=== PATIENT | male | born 1940 | race Caucasian/White ===

== ENCOUNTER 2017-05-11 17:01 | Inpatient (IN) | payer MEDICARE ==
[~2017-05-11] VITALS: Ht 177.8 cm; Wt 53.1 kg
[2017-05-11] MEDS ORDERED: traMADol 50 MG TABLET PO PRN (18:30)
[2017-05-11] MEDS ORDERED: ONDANSETRON ODT 4 MG TAB.RAPDIS. PO PRN (18:30)
[2017-05-11] MEDS ORDERED: MAGNESIUM HYDROXIDE 2,400 MG/30 ML ORAL.SUSP. PO PRN (18:30)
[2017-05-11] MEDS ORDERED: MAGNESIUM CITRATE 296 ML SOLUTION. PO PRN (18:30)
[2017-05-11] MEDS ORDERED: IPRATRPIUM/ALBUTEROL 0.5/2.5MG 3 ML NEBU. NEB PRN (18:30)
[2017-05-11 18:45] VITALS: BP 128/61
[2017-05-11 19:00] VITALS: BP 167/55
[2017-05-11] MEDS ORDERED: ENOX40DI SQ (19:08)
[2017-05-11] MEDS ORDERED: TAMS0.4C97 PO (19:08)
[2017-05-11] MEDS ORDERED: FLUT9.9S NS (19:08)
[2017-05-11] MEDS ORDERED: GLIM2TAB2 PO (19:08)
[2017-05-11] MEDS ORDERED: ASPI-630 PO (19:08)
[2017-05-11] MEDS ORDERED: NIAC500T PO (19:08)
[2017-05-11] MEDS ORDERED: WHEA1POW8 PO (19:08)
[2017-05-11] MEDS ORDERED: MAGN296S9 PO (19:08)
[2017-05-11] MEDS ORDERED: FERR-26 PO (19:08)
[2017-05-11] MEDS ORDERED: ONDA4TAB10 SL (19:08)
[2017-05-11] MEDS ORDERED: IPRA3AMP NEB (19:08)
[2017-05-11] MEDS ORDERED: FEXO180T16 PO (19:08)
[2017-05-11] MEDS ORDERED: CYAN100031 PO (19:08)
[2017-05-11] MEDS ORDERED: CHOL10003 PO (19:08)
[2017-05-11] MEDS ORDERED: PANT40TA5 PO (19:08)
[2017-05-11] MEDS ORDERED: TRAM50TA PO (19:08)
[2017-05-11] MEDS ORDERED: CLOP75TA PO (19:08)
[2017-05-11] MEDS ORDERED: MAGN400O7 PO (19:08)
[2017-05-11] MEDS ORDERED: LIRA0.6P2 SQ (19:08)
[2017-05-11] MEDS ORDERED: METF-620 PO (19:08)
[2017-05-11] MEDS ORDERED: DEXTROSE 50% 25 GM / 50ML DISP.SYRIN. IV PRN (19:30)
[2017-05-11] MEDS ORDERED: ACETAMINOPHEN 325 MG TABLET. PO PRN (19:30)
[2017-05-11 19:48] LABS: BASO # 0.1 x10^3/uL (0.0-0.2); BASO % 1 % (0-3); EOS % 10 % (0-3); HEMATOCRIT 29.4 % (39.0-53.0); LYMPH # 0.6 x10^3/uL (1.0-4.8); LYMPH % 10 % (24-48); MEAN CORPUSCULAR HEMOGLOBIN 32 pg (25-35); MEAN CORPUSCULAR HGB CONC 34 g/dL (31-37); MEAN CORPUSCULAR VOLUME 94 fL (79-100); MONO % 6 % (0-9); NEUT % 73 % (31-73); PLATELET COUNT 241 x10^3/uL (140-400); RED BLOOD COUNT 3.11 x10^6/uL (4.30-5.70); RED CELL DISTRIBUTION WIDTH 13.5 % (11.5-14.5); WHITE BLOOD COUNT 5.7 x10^3/uL (4.0-11.0)
[2017-05-11] MEDS ORDERED: IOHEXOL 350 MG/ML 100 ML VIAL. IV ONE (20:00)
[2017-05-11] MEDS ORDERED: CONTRAST GIVEN MC PRN (20:00)
[2017-05-11 20:01] LABS: CALCIUM 9.1 mg/dL (8.5-10.1); CREATININE 1.1 mg/dL (0.7-1.3); GFR 65.1
[2017-05-11 20:07] LABS: ALBUMIN 3.2 g/dL (3.4-5.0); TOTAL BILIRUBIN 0.3 mg/dL (0.2-1.0); TOTAL PROTEIN 6.3 g/dL (6.4-8.2)
[2017-05-11 20:08] LABS: INR 1.1 (0.8-1.1); PROTHROMBIN TIME PATIENT 13.7 SEC (11.7-14.0)
[2017-05-11] MEDS: fentaNYL PF VIAL 100 MCG/2 ML VIAL IV PRN (21:23)
[2017-05-11] MEDS: ONDANSETRON PF 4 MG/2 ML VIAL. IV PRN (21:24)
[2017-05-11] MEDS: IV NORMAL SALINE 1000ML BAG 1,000 ML IV SCH (21:26)
--- NOTE | 2017-05-11 21:32 | RAD ---
CTA of the abdomen and pelvis with contrast 05/11/2017 CLINICAL HISTORY: Nausea and vomiting for 4 days. History of recent femoral bypass. TECHNIQUE: After the intravenous administration of 90 cc of Omnipaque 350, contiguous, 0.625 mm axial sections were obtained through the abdomen and pelvis. Multiplanar 3-D MIP and volume rendered 3-D reconstructed images were obtained. One or more of the following individualized dose reduction techniques were utilized for this study: 1. Automated exposure control. 2. Adjustment of the mA and/or kV according to patient size. 3. Use of iterative reconstruction technique. FINDINGS: Images through the lung bases demonstrate mild emphysematous changes bilaterally. The spleen, adrenal glands and right are within normal limits. A 1.2 cm rounded low-attenuation lesion is seen involving the inferior aspect of the right lobe of the liver. This likely represents a hepatic cyst. A nonenhancing low-attenuation area is seen involving the inferior aspect of the left kidney which likely represents an area of infarction. This measures 4.1 cm in size. The gallbladder is well-distended. No free fluid or free air is seen within the abdomen. There is no evidence of bowel obstruction. Images through the pelvis demonstrate the urinary bladder distended with urine. Fiducial markers are seen within the prostate gland. No free fluid is seen. Minimal S-shaped curvature of the thoracolumbar spine is noted. Degenerative changes are seen involving lower thoracic and throughout the lumbar spine and both hips. CTA images demonstrate moderate to severe atheromatous/atherosclerotic plaque formation involving the abdominal aorta and its branches. The abdominal aorta tapers normally. The origins of the celiac trunk and superior mesenteric arteries are patent. Solitary renal arteries are seen supplying both kidneys. Their origins are patent. The origin of the inferior mesenteric artery is not visualized. The patient is post aortobifemoral bypass graft placement. The graft is patent. The distal abdominal aorta is occluded. Reconstitution of arterial flow is seen via collaterals involving the distal common iliac arteries. The external iliac arteries are very small bilaterally. IMPRESSION: Post aortobifemoral bypass graft placement. The graft is patent as outlined above. No hemodynamically significant stenosis is seen involving the celiac trunk or superior mesenteric artery. An area of infarction is seen involving the inferior aspect of the left kidney as outlined above. Electronically signed by: Yonny Miller MD (05/11/2017 9:29 PM) [facility]
[2017-05-11 23:00] VITALS: BP 161/57
[2017-05-12] MEDS: IV NORMAL SALINE 1000ML BAG 1,000 ML IV SCH ×4 (02:30→23:26)
[2017-05-12 03:00] VITALS: BP 165/68
[2017-05-12] MEDS: fentaNYL PF VIAL 100 MCG/2 ML VIAL IV PRN ×4 (04:13→22:29)
[2017-05-12] MEDS: ONDANSETRON PF 4 MG/2 ML VIAL. IV PRN ×4 (04:13→22:28)
[2017-05-12 07:00] VITALS: BP 162/64
--- NOTE | 2017-05-12 07:48 | PDOC ---
Provider Note Provider Note Vascular Surgery Consultation Dictated 77 year old male with a recent aortobifemoral bypass, SMA and renal endarterectomies, right fem-pop bypass admitted with nausea and vomiting. 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 His labs are normal, no pain in abdomen on exam and no bowel abnormalities on CTA. May resume diet when ok with medicine/GI. IV fluids for hypovolemia with nausea/vomiting. Restart aspirin/plavix. Physical therapy consult. No vascular surgical intervention needed at this time. KELY CARL MD May 12, 2017 07:48
[2017-05-12] MEDS: CLOPIDOGREL BISULFATE 75 MG TABLET PO SCH (08:00)
[2017-05-12] MEDS: INSULIN ASPART 300 UNITS/3 ML INSULN.PEN SQ SCH ×3 (08:00→16:47)
[2017-05-12] MEDS ORDERED: ASPIRIN ENTERIC COATED 81 MG TABLET.DR. PO SCH (08:00)
--- NOTE | 2017-05-12 08:16 | CONS ---
DATE OF CONSULTATION: 05/12/2017 CHIEF COMPLAINT: Nausea and vomiting. HISTORY OF PRESENT ILLNESS: The patient is a 77-year-old male who a few weeks ago underwent surgery with Dr. Garibay at [facility] with an aortobifemoral artery bypass graft, bilateral renal artery and superior mesenteric artery endarterectomy with reimplantation of the inferior mesenteric artery and a right femoral to popliteal artery bypass graft in his leg. He was recently seen by Dr. Garibay approximately 1-1/2 weeks ago and the family reports being started on antibiotics for right leg incisional cellulitis. He reports 3-4 days of nausea and vomiting with abdominal fullness. He states he has had no abdominal pain. He did have a regular bowel movement yesterday and no diarrhea. He reports no fevers or chills. He has been at the [facility] and was sent to the hospital from there for evaluation of these symptoms. On admission yesterday evening, I had him get a CT angiogram of the abdomen and pelvis which shows the bypass graft is patent along with a patent celiac, superior mesenteric artery and bilateral renal arteries without significant stenosis. There are no signs of bowel ischemia. There is a small left inferior pole infarct in his kidney and this is likely secondary to an accessory artery ligation during the operation. He does not have any pain in this area from the infarct and his creatinine has been normal. The bowel was normal on the CAT scan, there were no signs of acute abnormalities. He has been receiving IV fluid hydration overnight and his laboratory studies on admission had a normal white blood cell count of 5.7, hemoglobin of 10. His lactate was slightly elevated at 2.2, but repeat was normal at 1.9 and his creatinine was normal at 1.1. ALLERGIES: INCLUDE PENICILLIN AND ATORVASTATIN. MEDICATIONS: Please see his full MAR. PHYSICAL EXAMINATION: VITAL SIGNS: The patient is afebrile at 98.8, his blood pressure is 161/57, pulse of 68, he is 96% on room air. ABDOMEN: Soft, nondistended and nontender. His midline incision has healed well. EXTREMITIES: His right groin and leg incisions are healed well with no erythema. He has a palpable graft pulse and his right foot is warm. There is very mild swelling in his right leg. His left leg groin incision is slightly swollen with a seroma seen on CT scan. There is no overlying erythema or drainage and his left foot is warm with no skin breakdown. IMPRESSION: 1. Recent aortobifemoral artery bypass graft with superior mesenteric artery and bilateral renal artery endarterectomies along with a right femoral to popliteal artery bypass. 2. Nausea and vomiting. PLAN: The patient underwent a CT angiogram of the abdomen and pelvis which shows that the bypass is patent along with patent mesenteric vessels with no stenosis in the superior mesenteric artery or celiac artery. There are no signs of bowel ischemia or bowel changes on the CAT scan. He does have a small left inferior pole renal infarct, likely due to accessory artery ligation, but he is asymptomatic with no pain and a normal creatinine. There is no acute abnormality seen on the CAT scan. The patient has nausea and vomiting with regular bowel movements. He has no abdominal pain on examination. He is receiving IV fluid hydration. Gastroenterology has been consulted. From vascular standpoint, he can resume his diet and be monitored. There is no need for acute surgical intervention. I will reorder his aspirin and Plavix, which is important for his bypass, which is patent in his right leg. Physical therapy will also be ordered since he has been at rehabilitation center. KELY CARL MD DR: ALEX/yrn JOB#: [id number] / [id number]
[2017-05-12] MEDS: FLUTICASONE 50MCG/NASAL SPRAY 16GM BOTTLE. NS SCH (09:00)
[2017-05-12] MEDS: PANTOPRAZOLE 40 MG TABLET.DR. PO SCH (09:00)
[2017-05-12] MEDS: PSYLLIUM HUSK (SUGAR FREE) 1 PKT PACKET PO SCH (09:00)
[2017-05-12] MEDS: CETIRIZINE HCL 10 MG TABLET. PO SCH (09:00)
[2017-05-12] MEDS: CHOLECALCIFEROL (VITAMIN D3) 1,000 UNIT TABLET PO SCH (09:00)
[2017-05-12] MEDS: ASPIRIN CHEWABLE 81 MG TABLET. PO SCH (09:00)
[2017-05-12] MEDS: CYANOCOBALAMIN (VITAMIN B-12) 1,000 MCG TABLET. PO SCH (09:00)
[2017-05-12] MEDS: TAMSULOSIN 0.4 MG CAP.ER.24H. PO SCH (09:00)
[2017-05-12] MEDS: FERROUS SULFATE 325 MG TABLET. PO SCH (09:00)
--- NOTE | 2017-05-12 09:03 | RAD ---
Exam performed: Lower extremity venous Doppler. History: Right lower extremity swelling. Date of service: 05/11/17. Comparison: None available Technique: Real-time grayscale, color-flow, duplex Doppler and spectral as of the right lower extremity deep venous system is performed and images are obtained. Findings: The study somewhat limited due to Steri-Strips in the groin region. The right lower extremity deep venous system is patent and compressible. No intraluminal clot is seen. Normal respiratory phasicity and augmentation is seen. There is a complex heterogeneous area approximately 9.1 x 3.9 x 1.9 cm in the right mid to distal calf corresponding to the area of interest probably representing an intramuscular hematoma. There is diffuse soft tissue swelling in the right lung. Impression: No convincing evidence of DVT seen in the right lower extremity. Complex heterogeneous 9.1 x 3.9 x 1.9 cm area in the right mid to distal calf probably represents intramuscular hematoma. This may be followed up on subsequent short-term interval follow-up
--- NOTE | 2017-05-12 09:44 | PDOC2 ---
GI CONSULT Reason For Consult: ?bowel ischemia, recurrent n/v HPI: HPI: 77 y/[facility] and [facility]/ v. S/p aortobifemoral bypass, SMA and renal endarterectomies, right fem-pop bypass on 04/08/17 @ [facility]. CTA A/P showed patent bypass w/o SMA or celiac stenosis or signs of bowel ischemia or acute abnormality. Vascular surgery has seen, restarted ASA and Plavix. Per RN, to also undergo abd US so has been kept NPO. He and his report 2-3 days of upper abd pain/discomfort associated w/ n/v, inability to tolerate much PO. Has felt "full." Denies heartburn and reflux. Was started on pantoprazole recently (a few days ago probably). No hematemesis , hematochezia, or melena. Has h/o constipation improved w/ Benefiber; however , since surgery has only had several "good" stools. ( recalls recent use of Milk of Magnesia and Kayexalate.) Last BM was yesterday, normal shape but "with a white coating." Since surgery has been using oxycodone, Tramadol, and Tylenol for pain. Also, prior to surgery was advised to start taking OTC iron QD (?and B12 - included on summary list). Believes A1c around 7. No liver, gallbladder, or pancreas history. Appetite hasn't been normal since surgery, estimates 12 pound weight loss. No previous EGD. Through our office has had four previous colonoscopies (last in 2007); findings include melanosis coli, diverticulosis, hemorrhoids, and hyperplastic polyp. Also reports colonoscopy in [place] in 2010 which showed "colitis." His is a patient of Dr. Anthony. PMH: PMH: per HPI + HTN, HLD, ZECHARIAH (CPAP), DM, previous resp failure/hypoxia, peripheral neuropathy, PVD, cervical and lumbar surgeries, LLE angioplasty FH: Family History: No pertinent hx Social History: Smoke: Quit Drugs: None ROS: GEN: Denies fevers, chills, sweats HEENT: Denies blurred vision, sore throat CV: Denies chest pain RESP: Denies shortness of air, cough GI: Per HPI : Denies hematuria, dysuria ENDO: +weight loss NEURO: Denies confusion, dizziness MSK: +weakness SKIN: Denies jaundice, pruritus Vitals: Vitals: Vital Signs Date Time Temp Pulse Resp B/P (MAP) Pulse Ox O2 Delivery O2 Flow Rate FiO2 05/12/17 07:17 98 Room Air 05/12/17 07:00 98.4 66 16 162/64 (96) 98.4 Labs: Labs: Laboratory Tests Test 05/11/17 19:30 05/11/17 20:03 05/11/17 22:50 05/12/17 07:41 White Blood Count 5.7 x10^3/uL (4.0-11.0) Red Blood Count 3.11 x10^6/uL (4.30-5.70) Hemoglobin 10.0 g/dL (13.0-17.5) Hematocrit 29.4 % (39.0-53.0) Mean Corpuscular Volume 94 fL (79-100) Mean Corpuscular Hemoglobin 32 pg (25-35) Mean Corpuscular Hemoglobin Concent 34 g/dL (31-37) Red Cell Distribution Width 13.5 % (11.5-14.5) Platelet Count 241 x10^3/uL (140-400) Neutrophils (%) (Auto) 73 % (31-73) Lymphocytes (%) (Auto) 10 % (24-48) Monocytes (%) (Auto) 6 % (0-9) Eosinophils (%) (Auto) 10 % (0-3) Basophils (%) (Auto) 1 % (0-3) Neutrophils # (Auto) 4.2 x10^3uL (1.8-7.7) Lymphocytes # (Auto) 0.6 x10^3/uL (1.0-4.8) Monocytes # (Auto) 0.4 x10^3/uL (0.0-1.1) Eosinophils # (Auto) 0.6 x10^3/uL (0.0-0.7) Basophils # (Auto) 0.1 x10^3/uL (0.0-0.2) Prothrombin Time 13.7 SEC (11.7-14.0) Prothromb Time International Ratio 1.1 (0.8-1.1) Activated Partial Thromboplast Time 31 SEC (24-38) Sodium Level 138 mmol/L (136-145) Potassium Level 4.0 mmol/L (3.5-5.1) Chloride Level 101 mmol/L (98-107) Carbon Dioxide Level 26 mmol/L (21-32) Anion Gap 11 (6-14) Blood Urea Nitrogen 21 mg/dL (8-26) Creatinine 1.1 mg/dL (0.7-1.3) Estimated GFR (Cockcroft-Gault) 65.1 BUN/Creatinine Ratio 19 (6-20) Glucose Level 178 mg/dL (70-99) Lactic Acid Level 2.2 mmol/L (0.4-2.0) 1.9 mmol/L (0.4-2.0) Calcium Level 9.1 mg/dL (8.5-10.1) Total Bilirubin 0.3 mg/dL (0.2-1.0) Aspartate Amino Transf (AST/SGOT) 12 U/L (15-37) Alanine Aminotransferase (ALT/SGPT) 15 U/L (16-63) Alkaline Phosphatase 67 U/L (46-116) Lactate Dehydrogenase 176 U/L (85-227) Total Protein 6.3 g/dL (6.4-8.2) Albumin 3.2 g/dL (3.4-5.0) Albumin/Globulin Ratio 1.0 (1.0-1.7) Lipase 130 U/L (73-393) Glucose (Fingerstick) 162 mg/dL (70-99) 102 mg/dL (70-99) Allergies: Coded Allergies: Penicillins (Verified Allergy, Unknown, 05/11/17) atorvastatin (Verified Allergy, Unknown, 05/11/17) Medications: Current Medications Medications (Trade) Dose Ordered Sig/Noe Route PRN Reason Start Time Stop Time Status Last Admin Dose Admin Sodium Chloride 1,000 ml @ 125 mls/hr Q8H IV 05/11/17 18:30 05/11/17 21:26 Ondansetron HCl (Zofran) 4 mg PRN Q4HRS PRN IV NAUSEA/VOMITING 05/11/17 18:30 05/12/17 04:13 Fentanyl Citrate (Fentanyl 2ml Vial) 25 mcg PRN Q3HRS PRN IV PAIN 05/11/17 19:30 10/10/17 04:13 Iohexol (Omnipaque 350 Mg/ml) 90 ml 1X ONCE IV 05/11/17 20:00 05/11/17 20:01 DC 05/11/17 20:30 Imaging: Imaging: RLE US Impression: No convincing evidence of DVT seen in the right lower extremity. Complex heterogeneous 9.1 x 3.9 x 1.9 cm area in the right mid to distal calf probably represents intramuscular hematoma. This may be followed up on subsequent short- term interval follow-up. CTA A/P FINDINGS: Images through the lung bases demonstrate mild emphysematous changes bilaterally. The spleen, adrenal glands and right are within normal limits. A 1.2 cm rounded low-attenuation lesion is seen involving the inferior aspect of the right lobe of the liver. This likely represents a hepatic cyst. A nonenhancing low-attenuation area is seen involving the inferior aspect of the left kidney which likely represents an area of infarction. This measures 4.1 cm in size. The gallbladder is well-distended. No free fluid or free air is seen within the abdomen. There is no evidence of bowel obstruction. Images through the pelvis demonstrate the urinary bladder distended with urine. Fiducial markers are seen within the prostate gland. No free fluid is seen. Minimal S- shaped curvature of the thoracolumbar spine is noted. Degenerative changes are seen involving lower thoracic and throughout the lumbar spine and both hips. CTA images demonstrate moderate to severe atheromatous/atherosclerotic plaque formation involving the abdominal aorta and its branches. The abdominal aorta tapers normally. The origins of the celiac trunk and superior mesenteric arteries are patent. Solitary renal arteries are seen supplying both kidneys. Their origins are patent. The origin of the inferior mesenteric artery is not visualized. The patient is post aortobifemoral bypass graft placement. The graft is patent. The distal abdominal aorta is occluded. Reconstitution of arterial flow is seen via collaterals involving the distal common iliac arteries. The external iliac arteries are very small bilaterally. IMPRESSION: Post aortobifemoral bypass graft placement. The graft is patent as outlined above. No hemodynamically significant stenosis is seen involving the celiac trunk or superior mesenteric artery. An area of infarction is seen involving the inferior aspect of the left kidney as outlined above. PE: GEN: NAD, thin, up to chair HEENT: Atraumatic, PERRL LUNGS: clear anteriorly HEART: RRR ABD: NABS, S/ND/NT EXTREMITY: No edema SKIN: healing midline incision NEURO/PSYCH: A & O 3, [place] A/P: A/P: Abd pain, n/v - resolved -onset 2-3 days ago, unable to tolerate PO at rehab -feels "full," has lost weight w/ decreased appetite since surgery -was started on pantoprazole recently S/p aortobifemoral bypass, SMA and renal endarterectomies, right fem-pop bypass -04/08/17 @ [facility], on Plavix and ASA -CT as above w/o acute abnormality Constipation -long history, previously improved w/ Benefiber, worse since surgery -last BM yesterday -has been on oxycodone for pain CRC screen -can document normal colonoscopy in 2007, pt also reports "colitis" on colonoscopy in [place] in 2010 Anemia -no obvious bleeding, has been on iron since 03/2017 -- Symptoms currently improved. Plans for abd US, await this - okay to try PO after. Agree w/ PPI. Continue treatment for constipation - will add Miralax, may want to consider Amitiza, Movantik, Relistor, etc. Consider EGD tomorrow if symptoms persist/US unrevealing. ALEIDA MCKENNA May 12, 2017 09:44
--- NOTE | 2017-05-12 09:46 | PN ---
DATE: 05/12/2017 SUBJECTIVE: The patient is resting slightly propped up in bed, in no apparent respiratory distress, awake, alert. On questioning him, he denied any complaint. He was seen by the vascular surgeon and CT angio of the abdomen showed that he is status post aortobifemoral bypass graft placement, the graft is patent. No hemodynamically significant stenosis seen involving the celiac trunk or superior mesenteric artery, an area of infarction is seen involving the inferior aspect of the left kidney. According to the CT scan, the spleen, adrenal glands are within normal range. There is a nonenhancing low attenuation area seen involving the inferior aspect of the left kidney, which likely represents an area of infarction, the gallbladder is well distended. No fluid or free air is seen within the abdomen. There is no evidence of bowel obstruction. His urinary bladder is distended with urine, fiducial markers are seen within the prostate gland. No free fluid is seen. Minimal S-shaped curvature of the thoracolumbar spine is noted. Degenerative changes are seen involving lower thoracic and throughout the lumber spine and both hip joint. He has had venous Doppler ultrasound of his right lower extremity, which was not read yet. PHYSICAL EXAMINATION: GENERAL: When I examined him, he looked pale but not jaundiced, cyanosis or thyromegaly. No jugular venous distension. No limb edema. VITAL SIGNS: His heart rate was 73, blood pressure was 165/68, temperature was 98.1, respiratory rate was 19 and oxygen saturation was 96%. HEAD, EYES, EARS, NOSE AND THROAT: Showed normocephalic, atraumatic. NECK: Supple. HEART: Showed normal first and second heart sounds. No gallop, rub or murmur. CHEST: Clear to auscultation. No crepitation or rhonchi. ABDOMEN: Distended, soft, nontender. No guarding or rigidity. No organomegaly. Hernial orifices intact. Bowel sounds normal. NEUROLOGIC: He is awake, alert, responding appropriately. Cranial nerves intact. He moves extremities without difficulty although has marked muscle wasting and weakness. He is extremely cachectic, his body mass index only 16.8 kilograms square meter. Right lower extremity is definitely more swollen than the left. His intake was 1250, output of 700. LABORATORY DATA: His lab work done yesterday showed that serum sodium was 138, potassium 4, chloride 101, bicarbonate 26, anion gap of 11, BUN 21, creatinine 1.1, estimated GFR was 65 mL per minute. His glucose was 78. Calcium was 9.1, lactic acid was 2.2. Total bilirubin, AST, ALT, alkaline phosphatase were normal. His lactate dehydrogenase was 176, total protein was 6.3, albumin was 3.2. Serum lipase is normal at 130. His white cell count was 5700; hemoglobin 10; hematocrit 29; MCV 94 and platelet count of 241,000. His prothrombin time was 13.7, INR 1.1, aPTT was 31. ASSESSMENT: Recurrent bouts of nausea, vomiting and abdominal pain that has apparently subsided. His CT angio showed no evidence of obstruction, all of the grafts and superior mesenteric artery are patent. PLAN: My plan is to continue with IV fluid, continue holding his metformin and glipizide for now. We will arrange for him to have abdominal ultrasound and await evaluation by the tank cooper as he has been on Plavix and aspirin, and whether he has gastritis or peptic ulcer disease induced by the nonsteroidal antiinflammatory medication. CRISTY CORREA MD DR: VITA/yrn JOB#: [id number] / [id number]
[2017-05-12 11:00] VITALS: BP 158/65
[2017-05-12] MEDS: POLYETHYLENE GLYCOL 3350 17 GM PACKET. PO SCH (11:00)
--- NOTE | 2017-05-12 11:34 | HP ---
ADMIT DATE: 05/11/2017 HISTORY OF PRESENT ILLNESS: The patient is a 77-year-old male patient, a resident at [facility], who has been complaining of abdominal pain and recurrent bouts of nausea, vomiting, weight loss as well as swelling of his right lower extremity. Apparently, he was admitted recently to [facility] with right lower extremity claudication. CT angio showed complete occlusion of his right external iliac artery, superior mesenteric artery stenosis, bilateral renal artery stenosis, and occlusion of superior femoral artery and stenosis of the superficial femoral artery on the left. He underwent aortobifemoral bypass, bilateral femoral, bilateral renal and superior mesenteric endarterectomy. He also underwent right femoral to below knee popliteal bypass. He initially was markedly fluid overloaded. We did start him on Lasix and he lost most of his swelling of both legs. His appetite improved, he has been eating and drinking and was able to walk; however, over the last few days, he has been extremely nauseous, has recurrent bouts of nausea, vomiting, was complaining of abdominal pain, has not been able to eat and drink and generally feeling unwell given that he had recent surgery. He is also on multiple narcotics, although we cut down his narcotics ____ only tramadol and Tylenol. He is also on Plavix and aspirin. So, there are multiple possible explanations for his recurrent bouts of nausea and therefore, he was admitted to [facility] for further evaluation. I did consult the gastroenterology team as well as the vascular surgical team. PAST MEDICAL HISTORY: Significant for hypertension, hyperlipidemia, type 2 diabetes, prostate cancer, peripheral arterial disease. PAST SURGICAL HISTORY: Significant for balloon angioplasty of the left leg, back and neck surgery and has most recently underwent bilateral aortobifemoral bypass surgery, bilateral femoral endarterectomy, bilateral renal artery endarterectomy and superior mesenteric artery endarterectomy. He also underwent right femoral to below knee popliteal bypass. FAMILY HISTORY: Unremarkable. SOCIAL HISTORY: He is , retired, lives with his . He is an ex-smoker, quit about a month ago, has a son and a daughter. He does not drink alcohol or use recreational drugs. ALLERGIES: HE IS ALLERGIC TO PENICILLIN. MEDICATIONS: He is currently on following medications: He is on aspirin 81 mg once a day, cholecalciferol, vitamin D 1000 international units once a day, Plavix 75 mg once a day, cyanocobalamin 1000 mcg once a day, Lovenox 40 mg subcutaneously once a day, ferrous sulfate 325 mg once a day, fexofenadine 180 mg once a day, Flonase 2 sprays to each nostril once a day, glimepiride 2 mg twice a day, ipratropium bromide, albuterol inhaler by nebulizer every 4 hours as needed, Victoza 1.8 mg subcutaneously daily, magnesium citrate 1 bottle once a day as needed for constipation, magnesium hydroxide for milk of magnesia 30 mL p.o. daily p.r.n. for constipation, metformin 1000 mg twice a day with meals, niacin 500 mg at bedtime, ondansetron 4 mg every 4 hours, Protonix 40 mg daily, Flomax 0.4 mg once a day, tramadol 50 mg every 4 hours as needed and ____ 1 tablet p.o. b.i.d. REVIEW OF SYSTEMS: As per history of present illness. PHYSICAL EXAMINATION: GENERAL: When I examined him on arrival to [facility], the patient looked thin, pale, extremely cachectic, but no jaundice, cyanosis, lymphadenopathy or thyromegaly. No jugular distention, but marked swelling of the right lower extremity compared to his left lower extremity. VITAL SIGNS: His heart rate was 86, blood pressure was 128/61, temperature was 97.7, respiratory rate was 16, and oxygen saturation was 98% on room air. HEAD, EYES, NOSE AND THROAT: Showed normocephalic, atraumatic. NECK: Supple. HEART: Showed normal first and second heart sounds. No gallop, rub or murmur. CHEST: Shows central trachea, equally reduced expansion, reduced air entry, vesicular sounds. No crepitation or rhonchi. ABDOMEN: Distended, soft with some diffuse tenderness. No guarding or rigidity. No organomegaly. All hernial orifices intact. Bowel sounds normal. NEUROLOGIC: He was awake, alert, responding appropriately. Cranial nerves intact. He moves extremities without difficulty. He is able to ambulate with a walker. There is marked swelling with right lower extremity compared to the left lower extremity. ASSESSMENT AND PLAN: The patient was admitted with the complaint of abdominal pain and recurrent bouts of nausea, vomiting, weight loss and severe anorexia as he had a recent surgery with bilateral aortofemoral bypass together with superior mesenteric artery endarterectomy and bilateral renal artery endarterectomy. I did consult the vascular surgeon, Dr. Garibay, Gastroenterology as he has been on Plavix and aspirin, possible gastritis or peptic ulcer disease. I ordered stat lab work. We will keep him n.p.o. from midnight tonight. We will arrange for him to have abdominal ultrasound as well as venous Doppler ultrasound of his right lower extremity to make sure he does not have any right lower extremity deep vein thrombosis. I held his metformin as well as glipizide, started him on insulin sliding scale and continue with IV fluids in the form of normal saline at 75 mL per hour and we will decide on further management accordingly. CRISTY CORREA MD DR: VITA/yrn JOB#: [id number] / [id number]
--- NOTE | 2017-05-12 12:36 | RAD ---
Exam performed: Complete abdominal sonogram. Indication:Nausea and vomiting for 3 days patient had recent aortic surgery. Date of exam: 05/12/17 Technique:Real time garsia scale imaging of the abdomen is performed and images are obtained. Findings : The liver is normal in size and echogenicity. There is a cyst in the right hepatic lobe The common bile duct is dilated and measures up to 9.7 mm . The gallbladder appears thick-walled. There is a echogenic mobile focus in the gallbladder probably a sludge ball. There is small amount of pericholecystic fluid and fluid adjacent to the bradley hepatis. Gallbladder wall appears thickened and measures up to 3.7 mm. The pancreas is poorly visualized. The spleen is normal in size. Both kidneys are unremarkable without evidence for hydronephrosis. Right kidney measures 10.3 x 5.0 x 4.6 cm and the left kidney measures 10.1 x 4.9 x 5.6. The inferior vena cava and aorta appear normal. Incidental small pericardial cyst Impression: Echogenic nonshadowing focus in the gallbladder with gallbladder wall thickening and pericholecystic fluid. Findings are consistent with acute cholecystitis. Echogenic nonshadowing mobile focus in the gallbladder represents sludge ball. No evidence of cholelithiasis seen. Small pericardial effusion. Suboptimal evaluation of the retroperitoneal structures
--- NOTE | 2017-05-12 14:57 | PDOC2 ---
CONSULT Date of Consult Date of Consult DATE: 05/12/17 TIME: 14:42 Reason for Consult Reason for Consult: abd pain, N/V Referring Physician Referring Physician: Shane Identification/Chief Complaint Chief Complaint abd pain N/V Problems: Source Source: Caregiver, Patient History of Present Illness Reason for Visit: 77 yo M s/p recent aortobifem a few weeks ago. Presents with N/V abd pain. This has been going on about a week. Imaging of his vascular surgery is wnl. He is seen in his hospital room accompanied by his supportive . He is laying in a chair. Past Medical History Cardiovascular: HTN, Hyperlipidemia, Other (peripheral vascular disease) Endocrine: Diabetes Past Surgical History Past Surgical History: Other (multiple procedures for peripheral vascular disease as well as mesenteric disease) Family History Family History: No Significant Social History Quit Drugs: None Current Medications Current Medications Current Medications Sodium Chloride 1,000 ml @ 125 mls/hr Q8H IV Last administered on 05/12/17 13:52; Start 05/11/17 at 18:30 Ondansetron HCl (Zofran) 4 mg PRN Q4HRS PRN IV NAUSEA/VOMITING Last administered on 05/12/17 13:53; Start 05/11/17 at 18:30 Aspirin (Children'S Aspirin) 81 mg DAILY PO ; Start 05/12/17 at 09:00 Vitamin D (Vitamin D3) 1,000 unit DAILY PO ; Start 05/12/17 at 09:00 Ferrous Sulfate (Feosol) 325 mg DAILY PO ; Start 05/12/17 at 09:00 Albuterol/ Ipratropium (Duoneb) 3 ml PRN Q4HRS PRN NEB WHEEZES; Start 05/11/17 at 18:30 Magnesium Citrate (Citroma) 296 ml PRN DAILY PRN PO CONSTIPATION; Start at 18:30 Magnesium Hydroxide (Milk Of Magnesia) 400 mg PRN Q12HR PRN PO CONSTIPATION; Start 05/11/17 at 18:30 Ondansetron HCl (Zofran Odt) 4 mg PRN Q6HRS PRN PO NAUSEA; Start 05/11/17 at 18 :30 Pantoprazole Sodium (Protonix) 40 mg DAILY PO ; Start 05/12/17 at 09:00 Tamsulosin HCl (Flomax) 0.8 mg DAILY PO ; Start 05/12/17 at 09:00 Tramadol HCl (Ultram) 50 mg PRN Q4HRS PRN PO PAIN; Start 05/11/17 at 18:30 Cyanocobalamin (Vitamin B-12) 1,000 mcg DAILY PO ; Start 05/12/17 at 09:00 Cetirizine HCl (ZyrTEC) 10 mg DAILY PO ; Start 05/12/17 at 09:00 Fluticasone Propionate (Flonase) 2 spray DAILY NS ; Start 05/12/17 at 09:00 Psyllium Hydrophilic Mucilloid (Metamucil Fiber Packet) 1 pkt DAILY PO ; Start 05/12/17 at 09:00 Acetaminophen (Tylenol) 650 mg PRN Q4HRS PRN PO pain; Start 05/11/17 at 19:30 Insulin Aspart (NovoLOG) 0-5 UNITS TIDWMEALS SQ ; Start 05/12/17 at 08:00 Dextrose (Dextrose 50%-Water Syringe) 12.5 gm PRN Q15MIN PRN IV SEE COMMENTS; Start 05/11/17 at 19:30 Fentanyl Citrate (Fentanyl 2ml Vial) 25 mcg PRN Q3HRS PRN IV PAIN Last administered on 05/12/17t 04:13; Start 05/11/17 at 19:30 Fentanyl Citrate (Fentanyl 2ml Vial) 50 mcg PRN Q3HRS PRN IV PAIN Last administered on 05/12/17t 13:54; Start 05/11/17 at 19:30 Iohexol (Omnipaque 350 Mg/ml) 90 ml 1X ONCE IV Last administered on 05/11/17t 20:30; Start 05/11/17 at 20:00; Stop 05/11/17 at 20:01; Status DC Info (Do NOT chart on this entry -- for MONITORING) 1 each PRN DAILY PRN MC SEE COMMENTS; Start 05/11/17 at 20:00; Stop 05/13/17 at 19:59 Aspirin (Ecotrin) 81 mg DAILYWBKFT PO ; Start 05/12/17 at 08:00; Stop at 08:00; Status DC Clopidogrel Bisulfate (Plavix) 75 mg DAILYWBKFT PO ; Start 05/12/17 at 08:00 Polyethylene Glycol (miraLAX PACKET) 17 gm DAILY PO ; Start 05/12/17 at 11:00 Active Scripts Active Reported Zofran Odt (Ondansetron) 4 Mg Tab.rapdis 1 Tab SL PRN Q6HRS PRN Niaspan (Niacin) 500 Mg Tab.er.24h 1 Tab PO QHS Ferrous Sulfate 325 Mg Tablet 1 Tab PO DAILY Pantoprazole Sodium 40 Mg Tablet.dr 1 Tab PO DAILY Lovenox (Enoxaparin Sodium) 40 Mg/0.4 Ml Disp.syrin 40 Mg SQ DAILY Magnesium Citrate 296 Ml Solution 296 Ml PO PRN DAILY PRN Duoneb 0.5-3(2.5) Mg/3 Ml (Albuterol/Ipratropium) 3 Ml Ampul.neb 3 Ml NEB PRN Q4HRS Milk Of Magnesia (Magnesium Hydroxide) 400 Mg/5 Ml Oral.susp 400 Mg PO PRN Q12HR PRN Tramadol Hcl 50 Mg Tablet 1 Tab PO PRN Q4HRS PRN Benefiber (Wheat Dextrin) 1 Each Powd.pack 1 Each PO BID Flonase Allergy Relief (Fluticasone Propionate) 9.9 Ml [place].susp 2 Sprays NS DAILY B-12 (Cyanocobalamin (Vitamin B-12)) 1,000 Mcg Tablet.er 1,000 Mcg PO DAILY Vitamin D3 (Cholecalciferol (Vitamin D3)) 1,000 Unit Tablet 1 Tab PO DAILY Metformin Hcl 1,000 Mg Tablet 1,000 Mg PO BIDWMEALS Aspirin 81 Mg Tab.chew 1 Tab PO DAILY Flomax (Tamsulosin Hcl) 0.4 Mg Cap.er.24h 2 Cap PO DAILY Victoza 3-Balbir (Liraglutide) 0.6 Mg/0.1 Ml Pen.injctr 1.8 Mg SQ DAILY Glimepiride 2 Mg Tablet 1 Tab PO BID Fexofenadine Hcl 180 Mg Tablet 1 Tab PO DAILY Clopidogrel (Clopidogrel Bisulfate) 75 Mg Tablet 1 Tab PO DAILY Allergies Allergies: Coded Allergies: Penicillins (Verified Allergy, Unknown, 05/11/17) atorvastatin (Verified Allergy, Unknown, 05/11/17) ROS Gastrointestinal: Yes Nausea, Yes Vomiting, Yes Abdominal Pain Physical Exam General: Alert, Oriented X3, Cooperative, No acute distress, Other (thin) HEENT: Atraumatic, EOMI Lungs: Normal air movement Abdomen: Soft, No tenderness Extremities: No clubbing, No cyanosis Skin: No rashes, No breakdown Neuro: Normal speech, Sensation intact, Other (hard of hearing) MUSCULOSKELETAL: No joint tenderness, No deformity Vitals VITALS Vital Signs Date Time Temp Pulse Resp B/P (MAP) Pulse Ox O2 Delivery O2 Flow Rate FiO2 05/12/17 13:54 98 Room Air 05/12/17 11:00 98.8 67 16 158/65 (96) 98.8 Labs Labs Laboratory Tests Test 05/11/17 19:30 05/11/17 20:03 05/11/17 22:50 05/12/17 07:41 White Blood Count 5.7 x10^3/uL (4.0-11.0) Red Blood Count 3.11 x10^6/uL (4.30-5.70) Hemoglobin 10.0 g/dL (13.0-17.5) Hematocrit 29.4 % (39.0-53.0) Mean Corpuscular Volume 94 fL (79-100) Mean Corpuscular Hemoglobin 32 pg (25-35) Mean Corpuscular Hemoglobin Concent 34 g/dL (31-37) Red Cell Distribution Width 13.5 % (11.5-14.5) Platelet Count 241 x10^3/uL (140-400) Neutrophils (%) (Auto) 73 % (31-73) Lymphocytes (%) (Auto) 10 % (24-48) Monocytes (%) (Auto) 6 % (0-9) Eosinophils (%) (Auto) 10 % (0-3) Basophils (%) (Auto) 1 % (0-3) Neutrophils # (Auto) 4.2 x10^3uL (1.8-7.7) Lymphocytes # (Auto) 0.6 x10^3/uL (1.0-4.8) Monocytes # (Auto) 0.4 x10^3/uL (0.0-1.1) Eosinophils # (Auto) 0.6 x10^3/uL (0.0-0.7) Basophils # (Auto) 0.1 x10^3/uL (0.0-0.2) Prothrombin Time 13.7 SEC (11.7-14.0) Prothromb Time International Ratio 1.1 (0.8-1.1) Activated Partial Thromboplast Time 31 SEC (24-38) Sodium Level 138 mmol/L (136-145) Potassium Level 4.0 mmol/L (3.5-5.1) Chloride Level 101 mmol/L (98-107) Carbon Dioxide Level 26 mmol/L (21-32) Anion Gap 11 (6-14) Blood Urea Nitrogen 21 mg/dL (8-26) Creatinine 1.1 mg/dL (0.7-1.3) Estimated GFR (Cockcroft-Gault) 65.1 BUN/Creatinine Ratio 19 (6-20) Glucose Level 178 mg/dL (70-99) Lactic Acid Level 2.2 mmol/L (0.4-2.0) 1.9 mmol/L (0.4-2.0) Calcium Level 9.1 mg/dL (8.5-10.1) Total Bilirubin 0.3 mg/dL (0.2-1.0) Aspartate Amino Transf (AST/SGOT) 12 U/L (15-37) Alanine Aminotransferase (ALT/SGPT) 15 U/L (16-63) Alkaline Phosphatase 67 U/L (46-116) Lactate Dehydrogenase 176 U/L (85-227) Total Protein 6.3 g/dL (6.4-8.2) Albumin 3.2 g/dL (3.4-5.0) Albumin/Globulin Ratio 1.0 (1.0-1.7) Lipase 130 U/L (73-393) Glucose (Fingerstick) 162 mg/dL (70-99) 102 mg/dL (70-99) Test 05/12/17 11:24 Glucose (Fingerstick) 106 mg/dL (70-99) Laboratory Tests Test 05/11/17 19:30 05/11/17 20:03 05/11/17 22:50 05/12/17 07:41 White Blood Count 5.7 x10^3/uL (4.0-11.0) Red Blood Count 3.11 x10^6/uL (4.30-5.70) Hemoglobin 10.0 g/dL (13.0-17.5) Hematocrit 29.4 % (39.0-53.0) Mean Corpuscular Volume 94 fL (79-100) Mean Corpuscular Hemoglobin 32 pg (25-35) Mean Corpuscular Hemoglobin Concent 34 g/dL (31-37) Red Cell Distribution Width 13.5 % (11.5-14.5) Platelet Count 241 x10^3/uL (140-400) Neutrophils (%) (Auto) 73 % (31-73) Lymphocytes (%) (Auto) 10 % (24-48) Monocytes (%) (Auto) 6 % (0-9) Eosinophils (%) (Auto) 10 % (0-3) Basophils (%) (Auto) 1 % (0-3) Neutrophils # (Auto) 4.2 x10^3uL (1.8-7.7) Lymphocytes # (Auto) 0.6 x10^3/uL (1.0-4.8) Monocytes # (Auto) 0.4 x10^3/uL (0.0-1.1) Eosinophils # (Auto) 0.6 x10^3/uL (0.0-0.7) Basophils # (Auto) 0.1 x10^3/uL (0.0-0.2) Prothrombin Time 13.7 SEC (11.7-14.0) Prothromb Time International Ratio 1.1 (0.8-1.1) Activated Partial Thromboplast Time 31 SEC (24-38) Sodium Level 138 mmol/L (136-145) Potassium Level 4.0 mmol/L (3.5-5.1) Chloride Level 101 mmol/L (98-107) Carbon Dioxide Level 26 mmol/L (21-32) Anion Gap 11 (6-14) Blood Urea Nitrogen 21 mg/dL (8-26) Creatinine 1.1 mg/dL (0.7-1.3) Estimated GFR (Cockcroft-Gault) 65.1 BUN/Creatinine Ratio 19 (6-20) Glucose Level 178 mg/dL (70-99) Lactic Acid Level 2.2 mmol/L (0.4-2.0) 1.9 mmol/L (0.4-2.0) Calcium Level 9.1 mg/dL (8.5-10.1) Total Bilirubin 0.3 mg/dL (0.2-1.0) Aspartate Amino Transf (AST/SGOT) 12 U/L (15-37) Alanine Aminotransferase (ALT/SGPT) 15 U/L (16-63) Alkaline Phosphatase 67 U/L (46-116) Lactate Dehydrogenase 176 U/L (85-227) Total Protein 6.3 g/dL (6.4-8.2) Albumin 3.2 g/dL (3.4-5.0) Albumin/Globulin Ratio 1.0 (1.0-1.7) Lipase 130 U/L (73-393) Glucose (Fingerstick) 162 mg/dL (70-99) 102 mg/dL (70-99) Test 05/12/17 11:24 Glucose (Fingerstick) 106 mg/dL (70-99) Images Images CTA wnl, US c/w acalculous cholecystitis Assessment/Plan Assessment/Plan Acalculous cholecystitis Given his recent surgery, would recommend lap javier with grams, currently. However, he may benefit from percutaneous cholecystostomy tube placement and then elective lap javier with grams. This was discussed with the patient and patient's , whom appear to understand, and agree to current plan. Thanks for consult! JASMEET MAJANO MD May 12, 2017 14:57
[2017-05-12 15:00] VITALS: BP 172/71
--- NOTE | 2017-05-12 16:29 | PDOC ---
Provider Note Provider Note IR NOTE Asked to see patient for possible perc cholecystostomy tube. He has been having some N/V and abdominal discomfort, which is improved since admission. He was found to have Gb wall thickening, Gb sludge and pericholecystic fluid by US as well as a small right pleural effusion. He is afebrile, with normal BP. WBC is wnl. Bili is wnl. On exam his abdomen is nontender and nondistended. Garcia' s sign negative. Discussed case with surgeon. Will order Hepatobiliary scan. If gallbladder is non-visualized will revisit percutaneous cholecystostomy. ORLANDO MOJICA MD May 12, 2017 16:29
[2017-05-12 19:35] VITALS: BP 167/69
[2017-05-12 23:50] VITALS: BP 167/64
[2017-05-13] MEDS: ONDANSETRON PF 4 MG/2 ML VIAL. IV PRN ×4 (03:04→18:53)
[2017-05-13] MEDS: fentaNYL PF VIAL 100 MCG/2 ML VIAL IV PRN ×4 (03:05→18:49)
[2017-05-13 03:59] VITALS: BP 162/66
[2017-05-13 04:00] VITALS: BP 162/66
[2017-05-13 05:14] LABS: HEMATOCRIT 27.7 % (39.0-53.0); HEMOGLOBIN 9.4 g/dL (13.0-17.5); RED BLOOD COUNT 2.94 x10^6/uL (4.30-5.70); RED CELL DISTRIBUTION WIDTH 13.8 % (11.5-14.5); WHITE BLOOD COUNT 7.4 x10^3/uL (4.0-11.0)
[2017-05-13 05:47] LABS: ALBUMIN 2.7 g/dL (3.4-5.0); CALCIUM 8.2 mg/dL (8.5-10.1); CREATININE 1.1 mg/dL (0.7-1.3); GFR 65.1; POTASSIUM 3.5 mmol/L (3.5-5.1); TOTAL BILIRUBIN 0.3 mg/dL (0.2-1.0); TOTAL PROTEIN 5.5 g/dL (6.4-8.2)
[2017-05-13] MEDS: INSULIN ASPART 300 UNITS/3 ML INSULN.PEN SQ SCH ×3 (08:00→17:00)
[2017-05-13] MEDS: CLOPIDOGREL BISULFATE 75 MG TABLET PO SCH (08:00)
--- NOTE | 2017-05-13 08:06 | PDOC ---
Provider Note Provider Note AF VSS awake and alert abdomen soft, nondistended, nontender, incision intact right leg incisions intact with palpable graft pulse, calf soft with no erythema feet warm and pink with no leg swelling A/P Recent aortobifemoral bypass with SMA/renal endarterectomies and right fem- pop bypass - no vascular issues at this point by exam and testing - duplex of left leg shows no DVT and normal post op changes - continue aspirin and plavix - having gallbladder functional test today for possible cholecystitis KELY CARL MD May 13, 2017 08:06
[2017-05-13] MEDS: TAMSULOSIN 0.4 MG CAP.ER.24H. PO SCH (09:00)
[2017-05-13] MEDS: CHOLECALCIFEROL (VITAMIN D3) 1,000 UNIT TABLET PO SCH (09:00)
[2017-05-13] MEDS: CYANOCOBALAMIN (VITAMIN B-12) 1,000 MCG TABLET. PO SCH (09:00)
[2017-05-13] MEDS: POLYETHYLENE GLYCOL 3350 17 GM PACKET. PO SCH (09:00)
[2017-05-13] MEDS: FLUTICASONE 50MCG/NASAL SPRAY 16GM BOTTLE. NS SCH (09:00)
[2017-05-13] MEDS: PANTOPRAZOLE 40 MG TABLET.DR. PO SCH (09:00)
[2017-05-13] MEDS: ASPIRIN CHEWABLE 81 MG TABLET. PO SCH (09:00)
[2017-05-13] MEDS: CETIRIZINE HCL 10 MG TABLET. PO SCH (09:00)
[2017-05-13] MEDS: FERROUS SULFATE 325 MG TABLET. PO SCH (09:00)
[2017-05-13] MEDS ORDERED: MORPHINE SULFATE 4 MG/ML DISP.SYRIN. IV ONE (09:00)
[2017-05-13] MEDS: PSYLLIUM HUSK (SUGAR FREE) 1 PKT PACKET PO SCH ×2 (09:00→18:42)
[2017-05-13] MEDS ORDERED: MORPHINE SULFATE 4 MG/ML DISP.SYRIN. ONE (09:10)
[2017-05-13] MEDS: IV NORMAL SALINE 1000ML BAG 1,000 ML IV SCH ×2 (10:22→18:49)
--- NOTE | 2017-05-13 10:25 | RAD ---
Indication abdominal pain with nausea and vomiting for several days. Hepatobiliary scan was performed. Ejection fraction was not performed. 5 mCi of technetium labeled MDP was administered. There is normal uptake of the radiopharmaceutical in the liver. Activity is seen early in the biliary system and small bowel. At 1 hour no activity was seen in the gallbladder. 4 mg of morphine was subsequently administered intravenously and additional images were obtained over 30 minutes. Activity is seen in the gallbladder, indicative of a patent cystic duct, after the administration of morphine. IMPRESSION: Patent cystic duct
[2017-05-13 11:00] VITALS: BP 162/61
--- NOTE | 2017-05-13 11:22 | PDOC ---
IR PROGRESS NOTE Objective Objective Vital Signs Date Time Temp Pulse Resp B/P (MAP) Pulse Ox O2 Delivery O2 Flow Rate FiO2 05/13/17 09:16 16 Room Air 05/13/17 07:54 94 05/13/17 03:59 97.7 68 162/66 (98) 97.7 Comment Labs Laboratory Tests Test 05/11/17 19:30 05/11/17 20:03 05/11/17 22:50 05/12/17 07:33 White Blood Count 5.7 x10^3/uL (4.0-11.0) Red Blood Count 3.11 x10^6/uL (4.30-5.70) Hemoglobin 10.0 g/dL (13.0-17.5) Hematocrit 29.4 % (39.0-53.0) Mean Corpuscular Volume 94 fL (79-100) Mean Corpuscular Hemoglobin 32 pg (25-35) Mean Corpuscular Hemoglobin Concent 34 g/dL (31-37) Red Cell Distribution Width 13.5 % (11.5-14.5) Platelet Count 241 x10^3/uL (140-400) Neutrophils (%) (Auto) 73 % (31-73) Lymphocytes (%) (Auto) 10 % (24-48) Monocytes (%) (Auto) 6 % (0-9) Eosinophils (%) (Auto) 10 % (0-3) Basophils (%) (Auto) 1 % (0-3) Neutrophils # (Auto) 4.2 x10^3uL (1.8-7.7) Lymphocytes # (Auto) 0.6 x10^3/uL (1.0-4.8) Monocytes # (Auto) 0.4 x10^3/uL (0.0-1.1) Eosinophils # (Auto) 0.6 x10^3/uL (0.0-0.7) Basophils # (Auto) 0.1 x10^3/uL (0.0-0.2) Prothrombin Time 13.7 SEC (11.7-14.0) Prothromb Time International Ratio 1.1 (0.8-1.1) Activated Partial Thromboplast Time 31 SEC (24-38) Sodium Level 138 mmol/L (136-145) Potassium Level 4.0 mmol/L (3.5-5.1) Chloride Level 101 mmol/L (98-107) Carbon Dioxide Level 26 mmol/L (21-32) Anion Gap 11 (6-14) Blood Urea Nitrogen 21 mg/dL (8-26) Creatinine 1.1 mg/dL (0.7-1.3) Estimated GFR (Cockcroft-Gault) 65.1 BUN/Creatinine Ratio 19 (6-20) Glucose Level 178 mg/dL (70-99) Lactic Acid Level 2.2 mmol/L (0.4-2.0) 1.9 mmol/L (0.4-2.0) Calcium Level 9.1 mg/dL (8.5-10.1) Total Bilirubin 0.3 mg/dL (0.2-1.0) Aspartate Amino Transf (AST/SGOT) 12 U/L (15-37) Alanine Aminotransferase (ALT/SGPT) 15 U/L (16-63) Alkaline Phosphatase 67 U/L (46-116) Lactate Dehydrogenase 176 U/L (85-227) Total Protein 6.3 g/dL (6.4-8.2) Albumin 3.2 g/dL (3.4-5.0) Albumin/Globulin Ratio 1.0 (1.0-1.7) Lipase 130 U/L (73-393) Glucose (Fingerstick) 162 mg/dL (70-99) Nasal Screen MRSA (PCR) Negative (Negative) Test 05/12/17 07:41 05/12/17 11:24 05/12/17 16:28 05/12/17 20:16 Glucose (Fingerstick) 102 mg/dL (70-99) 106 mg/dL (70-99) 127 mg/dL (70-99) 159 mg/dL (70-99) Test 05/13/17 04:45 05/13/17 10:40 White Blood Count 7.4 x10^3/uL (4.0-11.0) Red Blood Count 2.94 x10^6/uL (4.30-5.70) Hemoglobin 9.4 g/dL (13.0-17.5) Hematocrit 27.7 % (39.0-53.0) Mean Corpuscular Volume 94 fL (79-100) Mean Corpuscular Hemoglobin 32 pg (25-35) Mean Corpuscular Hemoglobin Concent 34 g/dL (31-37) Red Cell Distribution Width 13.8 % (11.5-14.5) Platelet Count 223 x10^3/uL (140-400) Sodium Level 140 mmol/L (136-145) Potassium Level 3.5 mmol/L (3.5-5.1) Chloride Level 106 mmol/L (98-107) Carbon Dioxide Level 25 mmol/L (21-32) Anion Gap 9 (6-14) Blood Urea Nitrogen 12 mg/dL (8-26) Creatinine 1.1 mg/dL (0.7-1.3) Estimated GFR (Cockcroft-Gault) 65.1 BUN/Creatinine Ratio 11 (6-20) Glucose Level 108 mg/dL (70-99) Calcium Level 8.2 mg/dL (8.5-10.1) Total Bilirubin 0.3 mg/dL (0.2-1.0) Aspartate Amino Transf (AST/SGOT) 13 U/L (15-37) Alanine Aminotransferase (ALT/SGPT) 16 U/L (16-63) Alkaline Phosphatase 63 U/L (46-116) Total Protein 5.5 g/dL (6.4-8.2) Albumin 2.7 g/dL (3.4-5.0) Albumin/Globulin Ratio 1.0 (1.0-1.7) Glucose (Fingerstick) 122 mg/dL (70-99) Laboratory Tests Test 05/12/17 11:24 05/12/17 16:28 05/12/17 20:16 05/13/17 04:45 Glucose (Fingerstick) 106 mg/dL (70-99) 127 mg/dL (70-99) 159 mg/dL (70-99) White Blood Count 7.4 x10^3/uL (4.0-11.0) Red Blood Count 2.94 x10^6/uL (4.30-5.70) Hemoglobin 9.4 g/dL (13.0-17.5) Hematocrit 27.7 % (39.0-53.0) Mean Corpuscular Volume 94 fL (79-100) Mean Corpuscular Hemoglobin 32 pg (25-35) Mean Corpuscular Hemoglobin Concent 34 g/dL (31-37) Red Cell Distribution Width 13.8 % (11.5-14.5) Platelet Count 223 x10^3/uL (140-400) Sodium Level 140 mmol/L (136-145) Potassium Level 3.5 mmol/L (3.5-5.1) Chloride Level 106 mmol/L (98-107) Carbon Dioxide Level 25 mmol/L (21-32) Anion Gap 9 (6-14) Blood Urea Nitrogen 12 mg/dL (8-26) Creatinine 1.1 mg/dL (0.7-1.3) Estimated GFR (Cockcroft-Gault) 65.1 BUN/Creatinine Ratio 11 (6-20) Glucose Level 108 mg/dL (70-99) Calcium Level 8.2 mg/dL (8.5-10.1) Total Bilirubin 0.3 mg/dL (0.2-1.0) Aspartate Amino Transf (AST/SGOT) 13 U/L (15-37) Alanine Aminotransferase (ALT/SGPT) 16 U/L (16-63) Alkaline Phosphatase 63 U/L (46-116) Total Protein 5.5 g/dL (6.4-8.2) Albumin 2.7 g/dL (3.4-5.0) Albumin/Globulin Ratio 1.0 (1.0-1.7) Test 05/13/17 10:40 Glucose (Fingerstick) 122 mg/dL (70-99) Vitals/I & O Vital Sign - Last 24 Hours 05/12/17 05/12/17 05/12/17 05/12/17 13:54 15:00 18:28 19:35 Temp 98.1 98.1 98.1 98.1 Pulse 67 66 Resp 16 16 B/P (MAP) 172/71 (104) 167/69 (101) Pulse Ox 98 96 96 95 O2 Delivery Room Air Room Air Room Air Room Air 05/12/17 05/12/17 05/12/17 05/13/17 20:00 22:29 23:50 03:05 Temp 97.5 97.5 Pulse 67 Resp 20 16 20 B/P (MAP) 167/64 (98) Pulse Ox 94 96 95 O2 Delivery Room Air BiPAP/CPAP Room Air Room Air 05/13/17 05/13/17 05/13/17 05/13/17 03:38 03:59 07:54 09:16 Temp 97.7 97.7 Pulse 68 Resp 18 16 16 B/P (MAP) 162/66 (98) Pulse Ox 94 94 94 O2 Delivery Room Air Room Air Room Air Room Air Plan Plan IR NOTE Hepatobiliary scan demonstrates filling of the GB. Patient denies abdominal pain at current. He tolerated clears without issue last night. He is afebrile with normal WBC count. Abdomen S/NT/ND. No pain in RUQ. Will plan on holding off on cholecystostomy at this time. Should clinical status change will be happy to re-evaluate patient as needed. ORLANDO MOJICA MD May 13, 2017 11:22
--- NOTE | 2017-05-13 12:37 | PDOC ---
SURGICAL PROGRESS NOTE Subjective Pt feels better, no further N/V or abd pain Vital Signs Vital Signs Date Time Temp Pulse Resp B/P (MAP) Pulse Ox O2 Delivery O2 Flow Rate FiO2 05/13/17 09:16 16 Room Air 05/13/17 07:54 94 05/13/17 03:59 97.7 68 162/66 (98) 97.7 General: Alert, Oriented X3, Cooperative, No acute distress Abdomen: Soft, No tenderness Labs Laboratory Tests Test 05/11/17 19:30 05/11/17 20:03 05/11/17 22:50 05/12/17 07:33 White Blood Count 5.7 x10^3/uL (4.0-11.0) Red Blood Count 3.11 x10^6/uL (4.30-5.70) Hemoglobin 10.0 g/dL (13.0-17.5) Hematocrit 29.4 % (39.0-53.0) Mean Corpuscular Volume 94 fL (79-100) Mean Corpuscular Hemoglobin 32 pg (25-35) Mean Corpuscular Hemoglobin Concent 34 g/dL (31-37) Red Cell Distribution Width 13.5 % (11.5-14.5) Platelet Count 241 x10^3/uL (140-400) Neutrophils (%) (Auto) 73 % (31-73) Lymphocytes (%) (Auto) 10 % (24-48) Monocytes (%) (Auto) 6 % (0-9) Eosinophils (%) (Auto) 10 % (0-3) Basophils (%) (Auto) 1 % (0-3) Neutrophils # (Auto) 4.2 x10^3uL (1.8-7.7) Lymphocytes # (Auto) 0.6 x10^3/uL (1.0-4.8) Monocytes # (Auto) 0.4 x10^3/uL (0.0-1.1) Eosinophils # (Auto) 0.6 x10^3/uL (0.0-0.7) Basophils # (Auto) 0.1 x10^3/uL (0.0-0.2) Prothrombin Time 13.7 SEC (11.7-14.0) Prothromb Time International Ratio 1.1 (0.8-1.1) Activated Partial Thromboplast Time 31 SEC (24-38) Sodium Level 138 mmol/L (136-145) Potassium Level 4.0 mmol/L (3.5-5.1) Chloride Level 101 mmol/L (98-107) Carbon Dioxide Level 26 mmol/L (21-32) Anion Gap 11 (6-14) Blood Urea Nitrogen 21 mg/dL (8-26) Creatinine 1.1 mg/dL (0.7-1.3) Estimated GFR (Cockcroft-Gault) 65.1 BUN/Creatinine Ratio 19 (6-20) Glucose Level 178 mg/dL (70-99) Lactic Acid Level 2.2 mmol/L (0.4-2.0) 1.9 mmol/L (0.4-2.0) Calcium Level 9.1 mg/dL (8.5-10.1) Total Bilirubin 0.3 mg/dL (0.2-1.0) Aspartate Amino Transf (AST/SGOT) 12 U/L (15-37) Alanine Aminotransferase (ALT/SGPT) 15 U/L (16-63) Alkaline Phosphatase 67 U/L (46-116) Lactate Dehydrogenase 176 U/L (85-227) Total Protein 6.3 g/dL (6.4-8.2) Albumin 3.2 g/dL (3.4-5.0) Albumin/Globulin Ratio 1.0 (1.0-1.7) Lipase 130 U/L (73-393) Glucose (Fingerstick) 162 mg/dL (70-99) Nasal Screen MRSA (PCR) Negative (Negative) Test 05/12/17 07:41 05/12/17 11:24 05/12/17 16:28 05/12/17 20:16 Glucose (Fingerstick) 102 mg/dL (70-99) 106 mg/dL (70-99) 127 mg/dL (70-99) 159 mg/dL (70-99) Test 05/13/17 04:45 05/13/17 10:40 White Blood Count 7.4 x10^3/uL (4.0-11.0) Red Blood Count 2.94 x10^6/uL (4.30-5.70) Hemoglobin 9.4 g/dL (13.0-17.5) Hematocrit 27.7 % (39.0-53.0) Mean Corpuscular Volume 94 fL (79-100) Mean Corpuscular Hemoglobin 32 pg (25-35) Mean Corpuscular Hemoglobin Concent 34 g/dL (31-37) Red Cell Distribution Width 13.8 % (11.5-14.5) Platelet Count 223 x10^3/uL (140-400) Sodium Level 140 mmol/L (136-145) Potassium Level 3.5 mmol/L (3.5-5.1) Chloride Level 106 mmol/L (98-107) Carbon Dioxide Level 25 mmol/L (21-32) Anion Gap 9 (6-14) Blood Urea Nitrogen 12 mg/dL (8-26) Creatinine 1.1 mg/dL (0.7-1.3) Estimated GFR (Cockcroft-Gault) 65.1 BUN/Creatinine Ratio 11 (6-20) Glucose Level 108 mg/dL (70-99) Calcium Level 8.2 mg/dL (8.5-10.1) Total Bilirubin 0.3 mg/dL (0.2-1.0) Aspartate Amino Transf (AST/SGOT) 13 U/L (15-37) Alanine Aminotransferase (ALT/SGPT) 16 U/L (16-63) Alkaline Phosphatase 63 U/L (46-116) Total Protein 5.5 g/dL (6.4-8.2) Albumin 2.7 g/dL (3.4-5.0) Albumin/Globulin Ratio 1.0 (1.0-1.7) Glucose (Fingerstick) 122 mg/dL (70-99) Laboratory Tests Test 05/12/17 16:28 05/12/17 20:16 05/13/17 04:45 05/13/17 10:40 Glucose (Fingerstick) 127 mg/dL (70-99) 159 mg/dL (70-99) 122 mg/dL (70-99) White Blood Count 7.4 x10^3/uL (4.0-11.0) Red Blood Count 2.94 x10^6/uL (4.30-5.70) Hemoglobin 9.4 g/dL (13.0-17.5) Hematocrit 27.7 % (39.0-53.0) Mean Corpuscular Volume 94 fL (79-100) Mean Corpuscular Hemoglobin 32 pg (25-35) Mean Corpuscular Hemoglobin Concent 34 g/dL (31-37) Red Cell Distribution Width 13.8 % (11.5-14.5) Platelet Count 223 x10^3/uL (140-400) Sodium Level 140 mmol/L (136-145) Potassium Level 3.5 mmol/L (3.5-5.1) Chloride Level 106 mmol/L (98-107) Carbon Dioxide Level 25 mmol/L (21-32) Anion Gap 9 (6-14) Blood Urea Nitrogen 12 mg/dL (8-26) Creatinine 1.1 mg/dL (0.7-1.3) Estimated GFR (Cockcroft-Gault) 65.1 BUN/Creatinine Ratio 11 (6-20) Glucose Level 108 mg/dL (70-99) Calcium Level 8.2 mg/dL (8.5-10.1) Total Bilirubin 0.3 mg/dL (0.2-1.0) Aspartate Amino Transf (AST/SGOT) 13 U/L (15-37) Alanine Aminotransferase (ALT/SGPT) 16 U/L (16-63) Alkaline Phosphatase 63 U/L (46-116) Total Protein 5.5 g/dL (6.4-8.2) Albumin 2.7 g/dL (3.4-5.0) Albumin/Globulin Ratio 1.0 (1.0-1.7) I have reviewed the following PIPPDA patent cystic duct Problem List cholecystitis, improving with conservative management d/w IR , will avoid cholecystostomy tube d/w pt and pt's recommend f/u electively to consider lap javier with grams, but not be needed. Problems: JASMEET MAJANO MD May 13, 2017 12:37
--- NOTE | 2017-05-13 13:08 | PDOC ---
Subjective: Subjective: Feeling better. Denies abd pain. No n/v. Tolerating clears, hopeful to eat more. Objective: Objective: Reviewed other notes, d/w Dr. Mnotez and Dr. Lynn this morning. Vital Signs: Vital Signs Date Time Temp Pulse Resp B/P (MAP) Pulse Ox O2 Delivery O2 Flow Rate FiO2 05/13/17 12:36 94 Room Air 05/13/17 11:00 97.7 59 18 162/61 (94) 97.7 Labs: Laboratory Tests Test 05/12/17 16:28 05/12/17 20:16 05/13/17 04:45 05/13/17 10:40 Glucose (Fingerstick) 127 mg/dL 159 mg/dL 122 mg/dL White Blood Count 7.4 x10^3/uL Red Blood Count 2.94 x10^6/uL Hemoglobin 9.4 g/dL Hematocrit 27.7 % Mean Corpuscular Volume 94 fL Mean Corpuscular Hemoglobin 32 pg Mean Corpuscular Hemoglobin Concent 34 g/dL Red Cell Distribution Width 13.8 % Platelet Count 223 x10^3/uL Sodium Level 140 mmol/L Potassium Level 3.5 mmol/L Chloride Level 106 mmol/L Carbon Dioxide Level 25 mmol/L Anion Gap 9 Blood Urea Nitrogen 12 mg/dL Creatinine 1.1 mg/dL Estimated GFR (Cockcroft-Gault) 65.1 BUN/Creatinine Ratio 11 Glucose Level 108 mg/dL Calcium Level 8.2 mg/dL Total Bilirubin 0.3 mg/dL Aspartate Amino Transf (AST/SGOT) 13 U/L Alanine Aminotransferase (ALT/SGPT) 16 U/L Alkaline Phosphatase 63 U/L Total Protein 5.5 g/dL Albumin 2.7 g/dL Albumin/Globulin Ratio 1.0 Imaging: Abd US Impression: Echogenic nonshadowing focus in the gallbladder with gallbladder wall thickening and pericholecystic fluid. Findings are consistent with acute cholecystitis. Echogenic nonshadowing mobile focus in the gallbladder represents sludge ball. No evidence of cholelithiasis seen. Small pericardial effusion. Suboptimal evaluation of the retroperitoneal structures. PIPIDA IMPRESSION: Patent cystic duct. PE: GEN: NAD, up to chair w/ lunch tray (clears) LUNGS: CTAB HEART: RRR ABD: S/ND/NT NEURO/PSYCH: A & O 3 A/P: Abd pain, n/v - resolved -concern for cholecystitis and need for cholecystostomy tube ---> patent cystic duct on PIPIDA, normal WBC -on PPI -no previous EGD S/p recent vascular surg on Plavix, ASA -CTA w/o acute issue H/o constipation -has Miralax here ->4 previous colonoscopies Anemia -no obvious bleeding, on PO iron QD -- Symptoms improved. Holding on cholecystostomy tube for now. Would continue PPI. Will review any additional recommendations w/ Dr. Turk. ALEIDA MCKENNA May 13, 2017 13:08
[2017-05-13 15:00] VITALS: BP 181/73
[2017-05-13 19:00] VITALS: BP 159/57
[2017-05-13] MEDS ORDERED: INSULIN DETEMIR 300 UNITS/3 ML INSULN.PEN. SQ ONE (20:45)
[2017-05-13] MEDS ORDERED: rOPINIRole 0.25 MG TABLET. PO SCH (21:00)
[2017-05-13 23:00] VITALS: BP 159/57
[2017-05-14] MEDS: ONDANSETRON PF 4 MG/2 ML VIAL. IV PRN ×3 (00:10→09:33)
[2017-05-14] MEDS: fentaNYL PF VIAL 100 MCG/2 ML VIAL IV PRN ×3 (00:10→09:34)
[2017-05-14 03:00] VITALS: BP 143/72
[2017-05-14] MEDS: IV NORMAL SALINE 1000ML BAG 1,000 ML IV SCH (04:42)
[2017-05-14 07:00] VITALS: BP 164/77
--- NOTE | 2017-05-14 07:21 | PDOC ---
Provider Note Provider Note Vascular F/U S/P aorto bi fem bypass at ~ 1 mo. ago, 2+ popliteal pulses Imp: Patent bypass Plan: F/U as planned in office late May MATT KHAN MD May 14, 2017 07:21
[2017-05-14] MEDS: INSULIN ASPART 300 UNITS/3 ML INSULN.PEN SQ SCH ×2 (08:00→12:00)
[2017-05-14] MEDS: FLUTICASONE 50MCG/NASAL SPRAY 16GM BOTTLE. NS SCH (08:52)
[2017-05-14] MEDS: PSYLLIUM HUSK (SUGAR FREE) 1 PKT PACKET PO SCH (08:52)
[2017-05-14] MEDS: CYANOCOBALAMIN (VITAMIN B-12) 1,000 MCG TABLET. PO SCH (08:53)
[2017-05-14] MEDS: POLYETHYLENE GLYCOL 3350 17 GM PACKET. PO SCH (08:53)
[2017-05-14] MEDS: CHOLECALCIFEROL (VITAMIN D3) 1,000 UNIT TABLET PO SCH (08:53)
[2017-05-14] MEDS: CLOPIDOGREL BISULFATE 75 MG TABLET PO SCH (09:32)
[2017-05-14] MEDS: CETIRIZINE HCL 10 MG TABLET. PO SCH (09:32)
[2017-05-14] MEDS: PANTOPRAZOLE 40 MG TABLET.DR. PO SCH (09:33)
[2017-05-14] MEDS: ASPIRIN CHEWABLE 81 MG TABLET. PO SCH (09:33)
[2017-05-14] MEDS: TAMSULOSIN 0.4 MG CAP.ER.24H. PO SCH (09:33)
[2017-05-14] MEDS: FERROUS SULFATE 325 MG TABLET. PO SCH (09:33)
[2017-05-14 11:00] VITALS: BP 174/71
--- NOTE | 2017-05-14 12:49 | PDOC ---
Subjective: Subjective: Feeling much better. No pain or n/v. Tolerating diet. Objective: Vital Signs: Vital Signs Date Time Temp Pulse Resp B/P (MAP) Pulse Ox O2 Delivery O2 Flow Rate FiO2 05/14/17 11:00 98.1 58 18 174/71 (105) 95 Room Air 98.1 Labs: Laboratory Tests Test 05/13/17 16:51 05/13/17 20:36 05/14/17 07:33 05/14/17 12:01 Glucose (Fingerstick) 119 mg/dL 218 mg/dL 114 mg/dL 218 mg/dL PE: GEN: NAD, up to chair LUNGS: CTAB HEART: RRR ABD: S/ND/NT NEURO/PSYCH: A & O 3 A/P: Abd pain, n/v - resolved -cholecystitis on US, patent cystic duct on PIPIDA w/ normal WBC, holding on cholecystostomy tube -also on PPI S/p recent vascular surg on Plavix, ASA -CTA w/o acute issue -- Improved. DC per primary. GI follow-up PRN. ALEIDA MCKENNA May 14, 2017 12:49
--- NOTE | 2017-05-14 14:04 | PDOC ---
SURGICAL PROGRESS NOTE Subjective tolerating diet no pain plans for discharge today Vital Signs Vital Signs Date Time Temp Pulse Resp B/P (MAP) Pulse Ox O2 Delivery O2 Flow Rate FiO2 05/14/17 11:00 98.1 58 18 174/71 (105) 95 Room Air 98.1 General: Alert, Oriented X3, Cooperative, No acute distress Abdomen: Soft, No tenderness Labs Laboratory Tests Test 05/12/17 16:28 05/12/17 20:16 05/13/17 04:45 05/13/17 10:40 Glucose (Fingerstick) 127 mg/dL (70-99) 159 mg/dL (70-99) 122 mg/dL (70-99) White Blood Count 7.4 x10^3/uL (4.0-11.0) Red Blood Count 2.94 x10^6/uL (4.30-5.70) Hemoglobin 9.4 g/dL (13.0-17.5) Hematocrit 27.7 % (39.0-53.0) Mean Corpuscular Volume 94 fL (79-100) Mean Corpuscular Hemoglobin 32 pg (25-35) Mean Corpuscular Hemoglobin Concent 34 g/dL (31-37) Red Cell Distribution Width 13.8 % (11.5-14.5) Platelet Count 223 x10^3/uL (140-400) Sodium Level 140 mmol/L (136-145) Potassium Level 3.5 mmol/L (3.5-5.1) Chloride Level 106 mmol/L (98-107) Carbon Dioxide Level 25 mmol/L (21-32) Anion Gap 9 (6-14) Blood Urea Nitrogen 12 mg/dL (8-26) Creatinine 1.1 mg/dL (0.7-1.3) Estimated GFR (Cockcroft-Gault) 65.1 BUN/Creatinine Ratio 11 (6-20) Glucose Level 108 mg/dL (70-99) Calcium Level 8.2 mg/dL (8.5-10.1) Total Bilirubin 0.3 mg/dL (0.2-1.0) Aspartate Amino Transf (AST/SGOT) 13 U/L (15-37) Alanine Aminotransferase (ALT/SGPT) 16 U/L (16-63) Alkaline Phosphatase 63 U/L (46-116) Total Protein 5.5 g/dL (6.4-8.2) Albumin 2.7 g/dL (3.4-5.0) Albumin/Globulin Ratio 1.0 (1.0-1.7) Test 05/13/17 16:51 05/13/17 20:36 05/14/17 07:33 05/14/17 12:01 Glucose (Fingerstick) 119 mg/dL (70-99) 218 mg/dL (70-99) 114 mg/dL (70-99) 218 mg/dL (70-99) Laboratory Tests Test 05/13/17 16:51 05/13/17 20:36 05/14/17 07:33 05/14/17 12:01 Glucose (Fingerstick) 119 mg/dL (70-99) 218 mg/dL (70-99) 114 mg/dL (70-99) 218 mg/dL (70-99) Assessment/Plan abd pain, resolved FU as needed Problems: RYANN BARRIENTOS APRN May 14, 2017 14:04
--- NOTE | 2017-05-14 16:42 | DS ---
DATE OF DISCHARGE: 05/14/2017 HOSPITAL COURSE: The patient is a 77-year-old male patient who was a resident at [facility] where he has been complaining of recurrent bouts of nausea, vomiting and abdominal pain. Given that he has a recent surgery for his severe peripheral vascular disease and endarterectomy of his superior mesenteric artery as well as bilateral renal arteries and has also been on Plavix and aspirin, a decision was made to admit him to [facility]. We did consult the vascular surgeon and the Gastroenterology team. He has had a CT angio of the abdomen and pelvis, which showed that the patient is post-aortobifemoral bypass graft placement. The graft is patent, no hemodynamically significant stenosis seen involving the celiac trunk or superior mesenteric artery. An area of infarction is seen involving the inferior aspect of the left kidney due to ____ artery. We did an abdominal ultrasound, which showed that the patient has echogenic non-shadowing focus in the gallbladder with gallbladder wall thickening and pericholecystic fluid. Findings are consistent with acute cholecystitis. He was seen by the vascular surgeon and interventional radiologist who recommended doing a hepatobiliary scan, showed that there is normal uptake of the radio pharmaceutical in the liver. Activity seen early in the biliary system and small bowel hours at 1 hour. No activity was seen in the gallbladder, 4 mg oral morphine was subsequently administered intravenously and additional images were obtained. Over 30 minutes activities seen in the gallbladder indicating a patent cystic duct after the administration of morphine, the road boss did not recommend any further workup. The patient has been tolerating his food, has no further episodes of nausea, vomiting and decision was made to discharge him home with home health. PHYSICAL EXAMINATION: GENERAL: When I saw him today, he looked well and was clearly in no apparent respiratory distress, pale, cachectic, but no jaundice, cyanosis, or thyromegaly. No jugular venous distention. No limb edema. VITAL SIGNS: His heart rate was 56, blood pressure was 164/77, temperature was 97.9, respiratory rate was 18 and oxygen saturation was 96%. HEAD, EYES, EARS, NOSE AND THROAT: Showed normocephalic, atraumatic. NECK: Supple. HEART: Showed normal first and second heart sounds with no gallop, rub or murmur. CHEST: Clear to auscultation. No crepitation or rhonchi. ABDOMEN: Distended, soft, nontender. No guarding or rigidity. No organomegaly. All hernial orifices intact. Bowel sounds normal. NEUROLOGIC: He was awake, alert, responding appropriately. Cranial nerves intact. EXTREMITIES: He moves extremities without difficulty, ambulates with a walker. LABORATORY DATA: As of yesterday, showed a white cell count 7400, hemoglobin 9.4, hematocrit 27.7, MCV 94 and platelet count 223,000. His chemistry showed a serum sodium 140, potassium 3.5, chloride 106, bicarbonate 25, anion gap of 9, BUN 12, creatinine 1.1, estimated GFR was 65 mL per minute. His glucose was 108, calcium was 8.2. Total bilirubin, AST, ALT, alkaline phosphatase were normal. Total protein 5.5, albumin 2.7. Prothrombin time was 13.7, INR 1.1, aPTT was 31. DISCHARGE MEDICATIONS: He was discharged home to continue on following medications: Aspirin 81 mg once a day, cholecalciferol 1000 international units once a day, Plavix 75 mg once a day, cyanocobalamin 1000 mcg once a day, ferrous sulfate 325 mg once a day, fexofenadine 180 mg once a day, Flonase 2 sprays to each nostril once a day, glimepiride 2 mg twice a day, DuoNeb by nebulizer every 4 hours, ____ Victoza 1.8 mg subcutaneously daily, magnesium citrate 296 mL daily p.r.n. for constipation, magnesium hydroxide 30 mL p.o. daily p.r.n. for constipation, metformin 1000 mg twice a day, niacin or Niaspan 500 mg once a day, ondansetron or Zofran 4 mg ODT every 6 hours, Protonix 40 mg once a day, tamsulosin 0.8 mg at bedtime and tramadol 50 mg every 4 hours as needed. FINAL DISCHARGE DIAGNOSES: 1. Abdominal pain, nausea and vomiting, resolved. The patient is now tolerating his food without any problem. 2. Hypertension, hyperlipidemia, type 2 diabetes, prostate cancer, benign prostatic hypertrophy, peripheral arterial disease, status post bilateral femoral popliteal bypass together with bilateral femoral endarterectomy, bilateral renal artery endarterectomy and superior mesenteric artery endarterectomy. He also underwent right femoral to below knee popliteal bypass surgery. He also has severe chronic obstructive pulmonary disease. CRISTY CORREA MD DR: Jodi JOB#: [id number] / [id number]
== END 2017-05-14 14:25 | disposition home health service (06) | DRG 444 ==
LOC: 4 NORTH 17:54
PROVIDERS: ADMIT Internal Medicine; ATTEND Internal Medicine
PROC: 5A09357 Assistance with Respiratory Ventilation, Less than 24 Consecutive Hours, Continuous Positive Airway Pressure (ICD-10-PCS; principal; 2017-05-12)
DX: K81.0 Acute cholecystitis (principal); E43 Unspecified severe protein-calorie malnutrition; E11.42 Type 2 diabetes mellitus with diabetic polyneuropathy; E11.51 Type 2 diabetes mellitus with diabetic peripheral angiopathy without gangrene; Z68.1 Body mass index [BMI] 19.9 or less, adult; E87.70 Fluid overload, unspecified; I10 Essential (primary) hypertension; E78.5 Hyperlipidemia, unspecified; G47.33 Obstructive sleep apnea (adult) (pediatric); K59.00 Constipation, unspecified; D64.9 Anemia, unspecified; N40.0 Benign prostatic hyperplasia without lower urinary tract symptoms; J44.9 Chronic obstructive pulmonary disease, unspecified; Z85.46 Personal history of malignant neoplasm of prostate; Z87.891 Personal history of nicotine dependence; Z88.0 Allergy status to penicillin; Z88.8 Allergy status to other drugs, medicaments and biological substances
CPT/HCPCS: 36415; 74174; 76700; 78226; 80053; 82962; 83605; 83615; 83690; 85025; 85027; 85610; 85730; 87641; 93971; 94250; 94760; 96374; 96375; A9537; J1815; J2270; J2405; J3010; J7030; Q9967; 97110